=== PATIENT | female | born 1960 | race Caucasian/White ===

== ENCOUNTER 2018-04-09 13:52 | Emergency (ER) | payer SELFPAY ==
[~2018-04-09] VITALS: Ht 165.1 cm; Wt 64.5 kg
[2018-04-09 13:58] VITALS: BP 188/81; PULSE 84; TEMP 97.7
[2018-04-09] MEDS ORDERED: ATARAX 10MG10 MG/TAB PO (14:45)
[2018-04-09] MEDS ORDERED: PREDNISONE20 MG PO (14:45)
[2018-04-09] MEDS ORDERED: TRIAMCINOLONE A15 G2 TP (14:45)
== END 2018-04-09 14:53 | disposition home or self-care (01) ==
LOC: COL.ER 13:52
DX: L23.7 Allergic contact dermatitis due to plants, except food (principal); M79.7 Fibromyalgia